=== PATIENT | female | born 1965 | race Caucasian/White ===

== ENCOUNTER 2018-01-17 03:08 | Observation (INO) | payer BC ==
[2018-01-17] MEDS ORDERED: Metoclopramide HCl 10 MG/2 ML VIAL ONE (03:33)
[2018-01-17] MEDS ORDERED: Dicyclomine 20 MG TAB ONE ×2 (03:33→03:48)
[2018-01-17] MEDS ORDERED: diphenhydrAMINE 50 MG/ML VIAL ONE (03:33)
[2018-01-17 03:34] LABS: Hemoglobin 15.3 g/dL (12.0-16.0); Mean Corpuscular HGB CONC 33.1 g/dL (32.0-36.0); Mean Corpuscular Hemoglobin 29.6 pg (27.0-31.0); Mean Corpuscular Volume 89.4 fL (78.0-98.0); Mean Platelet Volume 7.3 fL (7.4-10.4); Platelet Count 312 thou/uL (130-400); RBC Distribution Width 11.4 % (11.5-14.5); Red Blood Cell (RBC) Count 5.18 mill/uL (4.20-5.40); White Blood Cell (WBC) Count 15.5 thou/uL (4.8-10.8)
[2018-01-17 03:42] LABS: BHCG - Serum Negative (NEGATIVE); Pregs Control Background? CLEAR/WHITE (CLR/WHITE); Pregs Control Bar Appear? YES (CONTROL BAR)
[2018-01-17 03:49] LABS: ALT (SGPT) 18 U/L (8-55); AST (SGOT) 16 U/L (5-34); Albumin 4.6 g/dL (3.5-5.0); Alkaline Phosphatase 90 U/L (40-150); Anion Gap 13 mmol/L (10-20); BUN (Urea Nitrogen) 16 mg/dL (9.8-20.1); Calc. Creatinine Clearance 0 mL/min (70-130); Calcium 10.2 mg/dL (7.8-10.44); Carbon Dioxide 23 mmol/L (22-29); Chloride 104 mmol/L (98-107); Estimated GFR-MDRD 68; Globulin 2.9 g/dL (2.4-3.5); Glucose 172 mg/dL (70-105); Potassium 3.7 mmol/L (3.5-5.1); Protein, Total 7.5 g/dL (6.0-8.3); Sodium 136 mmol/L (136-145)
[2018-01-17 03:54] LABS: Band 1 % (5-11); Lymphocytes 2 % (21-51); MDiff Complete? YES; Monocytes 3 % (0-10); Neutrophil 94 % (42-75); PLT Morphology Comment Appears Adequate; RBC Morphology Normal
[2018-01-17 04:03] LABS: Bilirubin Negative (Negative); Blood, Urine Negative (Negative); Clarity CLEAR (Clear); Glucose, Urine (Dipstick) Negative (Negative); Leukocyte Small (Negative); Nitrite Negative (Negative); Protein, Urine (Dipstick) Negative (Neg-Trace); Specific Gravity, Urine 1.022 (1.002-1.036); Urobilinogen 0.2 mg/dL (0.2-1.0)
[2018-01-17 04:05] LABS: Bacteria/HPF None Seen HPF (None Seen); Hyaline Casts/LPF 0-3 HYALINE CAST LPF (0-3 Hyaline); Pathc Cast-AUWi Flag 0.58 (0-2.49); Squamous Epithelial 0-3 HPF (0-3); WBC/HPF 0-3 HPF (0-3)
[2018-01-17 04:18] LABS: RBC/HPF 0-3 HPF (0-3)
[2018-01-17] MEDS ORDERED: Piperacillin/Tazobactam 4.5 GM VIAL ONE (04:48)
[2018-01-17] MEDS ORDERED: Ondansetron PF 4 MG/2 ML Vial ONE ×2 (05:34→13:59)
[2018-01-17] MEDS ORDERED: Morphine 2 MG/ML SYRINGE ONE (05:34)
[2018-01-17] MEDS ORDERED: Acetaminophen 325 MG TAB PO PRN ×3 (06:52→12:57)
[2018-01-17] MEDS ORDERED: Ondansetron ODT 4 MG TAB SL PRN (06:52)
[2018-01-17] MEDS ORDERED: Ondansetron PF 4 MG/2 ML Vial IVP PRN (06:52)
--- NOTE | 2018-01-17 08:34 | CT ---
PRELIMINARY REPORT/[facility]/EMERGENTY AFTER-HOURS PROCEDURE Addendum created by Pérez Moctezuma MD on 01/17/2018 4:01 AM Central Time ([place] & [place]) THIS REPORT CONTA INS FINDINGS THAT MAY BE CRITICAL TO PATIENT CARE. The findings were verbally communicated via teleph one conference with Rosaura Olivas RN at 4:01 AM INJECTION OPERATOR on 01/17/2018. The findings were acknowledged and u nderstood. Initial Report created on 01/17/2018 3:50 AM Central Time ([place] & [place]) CT Abdomen and Pelvis With Intravenous Contrast EXAM DATE/TIME: 01/17/2018 3:38 AM CLINICAL HISTORY: 52 years old, female; Pain; Abdominal pain; Patient HX: 52 yo f presents to ed with abdominal pain. P T reports cramping abd pain that radiates to her back which started around 6: 30 pm yesterday on her way home from work, with associated nausea and belching. PT denies vomiting, denies diarrhea, denies hematochezia, denies fever. PT reports chronic frequent urination. TECHNIQUE: Axial computed tomography images of the abdomen and pelvis with intravenous contrast. Coronal reformatted images were created and reviewed. COMPARISON: No relevant prior studies available. FINDINGS: Lower thorax: No acute findings. ABDOMEN: Liver: Normal. Gallbladder and bile ducts: Normal. Pancreas: Normal. Spleen: Normal. Adrenals: Normal. Kidneys and ureters: Normal. Stomach and bowel: Normal. Appendix: Appendix is abnormally dilated, measuring 13 mm in maximal outer diameter. Mild appendiceal wall thickening and minimal periappendiceal inflammatory stranding. No perforation or abscess. 9 mm appendicolith within the proximal appendiceal lumen. Appendix is located in conventional position. PELVIS: Bladder: Unremarkable as visualized. Reproductive: Unremarkable as visualized. ABDOMEN and PELVIS: Intraperitoneal space: Normal. No free air. No significant fluid collection. Bones/joints: No acute abnormality. Soft tissues: Normal. Vasculature: Normal. No abdominal aortic aneurysm. Lymph nodes: Normal. No enlarged lymph nodes. IMPRESSION: Acute appendicitis, without evidence of perforation or abscess. Thank you for allowing us to participate in the care of your patient. Dictated and Authenticated by: Pérez Moctezuma MD 01/17/2018 3:50 AM Central Time ([place] & [place]) FINAL REPORT CT ABDOMEN AND PELVIS WITH CONTRAST: History: Abdominal pain, cramping. Comparison: None. FINDINGS: Findings and impression agree with the preliminary report. Code QA. There appears to be hyperattenuat ing materials in the base of the appendix, likely a phlebolith. No evidence of perforation. Reactive iliac lymph nodes are present. POS: MITCH
--- NOTE | 2018-01-17 09:19 | HP ---
CHIEF COMPLAINT: Abdominal pain. HISTORY OF PRESENT ILLNESS: Ms. Diehl is a 52-year-old woman who had onset of abdominal pain yeste rday. She states that she was in a conference most of the day and was having some discomfort in her back which she attributed to a chair. She ate lunch without problems, but afterwards began having a lot of indigestion and nausea and crampy abdominal pain radiating to her back. This pain did not rel ent and actually got worse, so she came to the emergency room and was diagnosed with appendicitis by CT. She states that since receiving antibiotics and pain medication, her pain is better and she is n o longer as nauseated. The pain was in a band-like distribution across her lower abdomen and radiate d around the right side to her back. She had chills in the emergency room and some low grade fevers since her admission. PAST MEDICAL HISTORY: Hypothyroidism. PAST SURGICAL HISTORY: Ear tubes and tonsillectomy as a child. FAMILY HISTORY: Lupus, arthritis and fibromyalgia in her mother. No cardiac or cancer history in th e family. ALLERGIES/MEDICATIONS: She has no known drug allergies and takes only levothyroxine for medications. SOCIAL HISTORY: She does not smoke or use illicit drugs. She drinks rarely at social events. REVIEW OF SYSTEMS: Ten system review of systems is negative except per HPI. PHYSICAL EXAMINATION: VITAL SIGNS: T-max 100.3, currently afebrile with normal vital signs. GENERAL: Reveals a healthy appearing woman in no acute distress. HEENT: Unremarkable. NECK: Supple, without lymphadenopathy or thyroid nodules. She is not jaundiced or icteric. She is not flushed or toxic. HEART: Regular in its rate and rhythm without murmurs, rubs or gallops. LUNGS: Clear to auscultation. She does not have any pain with deep inspiration. ABDOMEN: Soft and nondistended. She is very tender to palpation in the right lower quadrant greater than the left lower quadrant, but does not exhibit rigidity, rebound or guarding. She does not have any palpable masses or hernias. EXTREMITIES: Warm and well perfused without edema. NEUROLOGIC: No focal deficits. PSYCHIATRIC: Alert, oriented, and appropriate. LABORATORY: White count is elevated, but other labs are unremarkable. CT images are reviewed and I agree with the written report. The appendix is enlarged with periappend iceal stranding. No other acute findings were noted. ASSESSMENT: Acute appendicitis. PLAN: Laparoscopic appendectomy. The diagnosis and recommended treatment were discussed with the florencia stuart and her family. Inherent risks of surgery include, but are not limited to bleeding, infection, risks of anesthesia, damage to nearby structures including bowel and blood vessels, need for other p rocedures, and need for open surgery. They understand and accept these risks and wish to proceed. S he understands that she is found to have evidence of perforation, washout, drain placement and hospit alization for IV antibiotics will be necessary. If she has no evidence of perforation, then she will likely be able to be discharged home later today.
[2018-01-17] MEDS ORDERED: Midazolam HCl 2 mg/2 ml Vial ONE ×2 (10:01→10:16)
[2018-01-17] MEDS ORDERED: Fentanyl 100 MCG/2 ML VIAL ONE ×2 (10:01→11:55)
[2018-01-17] MEDS ORDERED: Bupivacaine/Epinephrine 0.25% 30 ML VIAL ONE (10:11)
[2018-01-17] MEDS ORDERED: Morphine 10 MG/ML VIAL SLOW IVP PRN (12:55)
[2018-01-17] MEDS ORDERED: HYDROcodone/Acetaminophen 7.5/325 mg Tablet PO PRN ×2 (12:56)
[2018-01-17] MEDS ORDERED: Promethazine 25 MG TAB PO PRN (12:58)
[2018-01-17] MEDS ORDERED: Ibuprofen 200 MG TAB PO PRN ×2 (12:58→12:59)
[2018-01-17] MEDS: Sodium Chloride 0.9% 1,000 ML IV SCH ×2 (13:27→17:37)
[2018-01-17] MEDS ORDERED: PROPOFOL 200 MG/20 ML VIAL ONE (13:59)
[2018-01-17] MEDS ORDERED: Lidocaine 1% PF 5 ML VIAL ONE (13:59)
[2018-01-17] MEDS ORDERED: Ketorolac Tromethamine 30 MG/ML VIAL ONE (13:59)
[2018-01-17] MEDS ORDERED: Glycopyrrolate 0.2 MG/ML 5 ML SYRINGE ONE (13:59)
[2018-01-17] MEDS ORDERED: Dexamethasone 20 MG/5 ML VIAL ONE (13:59)
[2018-01-17] MEDS ORDERED: Piperacillin/Tazobactam 3.375 GM in Sodium Chloride 0.9% 100 ML IVPB SCH (14:00)
[2018-01-17 14:06] VITALS: TEMP 98
[2018-01-17 14:49] VITALS: BP 107/66
[2018-01-17] MEDS ORDERED: Iopamidol 370 76% 100 ML VIAL ONE (15:49)
--- NOTE | 2018-01-25 18:05 | PDOC.OP ---
Operative Note - Operative Note Operative Note: PROCEDURE: Laparoscopic appendectomy SURGEON: Ebony Avery M.D. ASST.: Najma Buchanan, MS 3 DATE OF PROCEDURE: PREOPERATIVE DIAGNOSIS: Appendicitis POSTOPERATIVE DIAGNOSIS: Appendicitis HISTORY: Patient presented to the emergency room with signs and symptoms appendicitis. This was confirmed by CT. Laparoscopic appendectomy was recommended. FINDINGS: Inflamed appendix without perforation. DESCRIPTION OF PROCEDURE: After informed consent was obtained and appropriate antibiotics continued, the patient was taken to the operating room and placed in the supine position and general endotracheal anesthesia was administered. The bladder was decompressed with a Duran catheter and the abdomen was prepped and draped in the standard sterile fashion. Local anesthesia was infused to the skin and subcutaneous tissues superior to the umbilicus. A transverse skin incision was made and a Veress needle placed into the abdominal cavity and carbon dioxide gas insufflated without difficulty. Opening pressure was less than 5. Carbon dioxide gas was insufflated to an intra-abdominal pressure 15 and the patient tolerated this well. The Veress needle was withdrawn and a [place] port advanced under direct laparoscopic vision into the abdominal cavity. Two additional ports were placed in the suprapubic and left lateral abdomen under direct laparoscopic vision after local anesthesia was infused at these sites. The appendix was identified and appeared inflamed with some fibrinous exudate but no abscess and no evidence of perforation. The appendix was grasped by the mesoappendix and elevated. The mesoappendix was then sequentially ligated and divided down to the base of the appendix, which was normal in appearance and was clearly seen to be at the confluence of the tenia. Two Endoloops were placed around the base of the appendix and the appendix was divided between these Endoloops, placed into an EndoCatch bag and drawn out through the suprapubic incision. The suprapubic trocar was then replaced and the operative site was easily irrigated to clear. The suprapubic trocar was removed and the fascia closed under direct laparoscopic vision with a 0 Vicryl suture on a GraNee needle with excellent technical result. The left lateral trocar was then removed and hemostasis verified. Carbon dioxide gas was desufflated through the umbilical trocar which was then removed. The skin incisions were irrigated and additional local anesthesia infused at each site. The skin was closed with 4-0 subcuticular Monocryl sutures and Dermabond dressings were placed. The patient was extubated and taken to the recovery room in good condition. Estimated blood loss was minimal. There were no complications. SPECIMEN: Appendix.
== END 2018-01-17 18:42 | disposition home or self-care (01) ==
LOC: ERS 03:08 → 3SE 05:44
PROVIDERS: ADMIT Surgery; ATTEND Surgery
PROC: 0DTJ4ZZ Resection of Appendix, Percutaneous Endoscopic Approach (ICD-10-PCS; principal; 2018-01-17)
DX: K35.33 Acute appendicitis with perforation, localized peritonitis, and gangrene, with abscess (principal); E03.9 Hypothyroidism, unspecified
CPT/HCPCS: 74177; 80053; 81003; 81015; 84703; 85025; 87086; 88304; 96361; 96365; 96367; 96374; 96375; G0378; J1100; J1200; J1885; J2001; J2250; J2270; J2405; J2543; J2704; J2765; J3010; J7050

== ENCOUNTER 2023-02-17 19:16 | Emergency (ER) | payer BC ==
[~2023-02-17 19:16] MED LIST: Iopamidol-370 76% 500 ML MDV (1 ML CHARGE) ONE
[2023-02-17] MEDS ORDERED: Ketorolac Tromethamine 30 MG/ML VIAL ONE (19:47)
[2023-02-17 19:50] LABS: #Basophils 0.1 thou/uL (0.0-0.2); #Eosinphils 0.2 thou/uL (0.0-0.7); #Monocytes 0.6 thou/uL (0.11-0.59); %Basophils 0.5 % (0.0-1.0); %Eosinophils 1.7 % (0.0-10.0); %Lymphocytes 11.6 % (21.0-51.0); %Monocytes 6.3 % (0.0-10.0); %Neutrophils 79.5 % (42.0-75.0); Hematocrit 41.8 % (36.0-47.0); Hemoglobin 14.3 g/dL (12.0-16.0); Mean Corpuscular HGB CONC 34.2 g/dL (32.0-36.0); Mean Corpuscular Hemoglobin 31.1 pg (27.0-31.0); Mean Corpuscular Volume 90.9 fl (78.0-98.0); Mean Platelet Volume 9.1 fL (7.4-10.4); Platelet Count 277 10x3/uL (130-400); RBC Distribution Width 12.3 % (11.5-14.5); White Blood Cell (WBC) Count 10.1 10x3/uL (4.8-10.8)
[2023-02-17 20:20] LABS: ALT (SGPT) 20 U/L (8-55); AST (SGOT) 21 U/L (5-34); Albumin 4.6 g/dL (3.5-5.0); Alkaline Phosphatase 105 U/L (40-110); Anion Gap 17 mmol/L (10-20); BUN (Urea Nitrogen) 18 mg/dL (9.8-20.1); Calc. Creatinine Clearance 0 mL/min (70-130); Calcium 9.8 mg/dL (7.8-10.44); Carbon Dioxide 22 mmol/L (22-29); Chloride 104 mmol/L (98-107); Estimated GFR 65; Globulin 2.9 g/dL (2.4-3.5); Glucose 92 mg/dL (70-105); Lipase 35 U/L (8-78); Potassium 3.4 mmol/L (3.5-5.1); Protein, Total 7.5 g/dL (6.0-8.3); Sodium 140 mmol/L (136-145)
[2023-02-17 20:32] LABS: Bilirubin, Total 0.9 mg/dL (0.2-1.2)
[2023-02-17 21:04] LABS: Bacteria/HPF None Seen HPF (None Seen); Bilirubin Negative (Negative); Blood, Urine 2+ (Negative); CAUTI Indications for Culture Pelvic or flank pain; Clarity Clear (Clear); Glucose, Urine (Dipstick) Normal (Negative); Ketone, Urine 20 mg/dL (Negative); Leukocyte Negative Leu/uL (Negative); Nitrite Negative (Negative); Protein, Urine (Dipstick) Negative (Neg-Trace); RBC/HPF 0-3 HPF (0-3); Specific Gravity, Urine 1.004 (1.002-1.036); Squamous Epithelial None Seen HPF (0-3); Urobilinogen Normal mg/dL (Less than 2); WBC/HPF 0-3 HPF (0-3)
[2023-02-17 21:05] LABS: Urine Culture Reflex No No
== END 2023-02-17 22:45 | disposition home or self-care (01) ==
LOC: ERS 19:16
DX: R10.9 Unspecified abdominal pain (principal)
CPT/HCPCS: 74177; 80053; 81001; 83690; 85025; 96361; 96374; J1885; Q9967